=== PATIENT | female | born 1975 | race Caucasian/White ===

== ENCOUNTER 2020-11-13 08:01 | Emergency (ER) | payer SELFPAY ==
[2020-11-13 08:06] VITALS: BMI 33.6
[2020-11-13] MEDS ORDERED: SODIUM CHLORIDE 0.9% 500 ML INFUS.BAG IV ONE (09:12)
[2020-11-13] MEDS ORDERED: ACETAMINOPHEN 500 MG TABLET (FP) PO ONE (09:12)
[2020-11-13] MEDS ORDERED: ACETAMINOPHEN 325 MG TABLET (FP) ONE (09:22)
[2020-11-13 10:15] LABS: HEMATOCRIT 26.3 % (32.4-45.2); HEMOGLOBIN 7.7 GM/dL (10.7-15.3); MCHC 29.2 g/dl (32.0-36.0); MEAN CELL VOLUME 58.5 fl (80-96); MEAN PLT VOLUME 8.7 fl (7.5-11.1); PLATELET COUNT 332 10^3/uL (134-434); RBC 4.49 M/mm3 (3.60-5.2); RDW 19.3 % (11.6-15.6); WHITE BLOOD COUNT 7.7 K/mm3 (4.0-10.0)
[2020-11-13 10:26] LABS: MCH 17.1 pg (25.7-33.7)
[2020-11-13 10:36] LABS: CHLORIDE 113 mmol/L (98-107); SODIUM 143 mmol/L (136-145)
[2020-11-13 10:41] LABS: CALCIUM 8.7 mg/dL (8.5-10.1)
[2020-11-13 10:42] LABS: ANION GAP 6 MMOL/L (8-16); BLOOD UREA NITROGEN 12.5 mg/dL (7-18); CO2 24 mmol/L (21-32); GLUCOSE,RANDOM 92 mg/dL (74-106)
[2020-11-13 10:43] LABS: SGPT/ALT 30 U/L (13-61)
[2020-11-13 10:45] LABS: BILIRUBIN,TOTAL 0.2 mg/dL (0.2-1); CREATININE 0.6 mg/dL (0.55-1.3); SGOT/AST 14 U/L (15-37); TOT PROT 7.6 g/dl (6.4-8.2)
[2020-11-13 10:46] LABS: ALK PHOS 112 U/L (45-117)
[2020-11-13 11:58] LABS: ANISOCYTOSIS 3+; MACROCYTOSIS 0; PLATELET ESTIMATE NORMAL
[2020-11-13 15:03] VITALS: BP 135/77; PULSE 84; TEMP 98.3
== END 2020-11-13 15:44 | disposition home or self-care (01) ==
LOC: JER 08:01
DX: J01.90 Acute sinusitis, unspecified (principal)
CPT/HCPCS: 36415; 71045-TC-FY; 71275-TC; 80053; 82550; 84484; 84703; 85025; 93005; 93010; 99285-25; C9803; Q9967; U0003; U0005

== ENCOUNTER 2021-09-03 09:27 | Emergency (ER) | payer SELFPAY ==
[2021-09-03 09:35] VITALS: BP 151/106; PULSE 75; RESP 17; TEMP 98.2; BMI 31.7
== END 2021-09-03 12:09 | disposition home or self-care (01) ==
LOC: JERFT 09:27
DX: M25.532 Pain in left wrist (principal); W01.0XXA Fall on same level from slipping, tripping and stumbling without subsequent striking against object, initial encounter
CPT/HCPCS: 73110-TC-LT-FY; 73130-TC-LT-FY; 99283-25

== ENCOUNTER 2022-12-29 17:52 | Emergency (ER) | payer SELFPAY ==
[2022-12-29 17:59] VITALS: BP 126/72; PULSE 95; RESP 16; TEMP 98.5; BMI 33.2
== END 2022-12-29 19:42 | disposition home or self-care (01) ==
LOC: JERFT 17:52 → JER 17:52 → JERFT 19:42
DX: R50.9 Fever, unspecified (principal); M79.10 Myalgia, unspecified site; R11.2 Nausea with vomiting, unspecified; R19.7 Diarrhea, unspecified; R51.9 Headache, unspecified; B34.9 Viral infection, unspecified; Z20.822 Contact with and (suspected) exposure to COVID-19
CPT/HCPCS: 0241U-QW; 99283-25